=== PATIENT | male | born 2000 | race Caucasian/White ===

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

== ENCOUNTER 2022-04-27 14:20 | Emergency (ER) | payer OTHER, SELFPAY ==
[2022-04-27 14:31] VITALS: BP 150/73; PULSE 64; RESP 18; TEMP 36.9; O2SAT 99
--- NOTE | 2022-04-27 14:50 | ED.URI ---
HPI - URI/Sore Throat General Chief Complaint: Upper Respiratory Infection Stated Complaint: sorethroat,congestion,lt ear discomfort Time Seen by Provider: 04/27/22 14:50 Source: patient Mode of arrival: ambulatory Limitations: no limitations History of Present Illness HPI Narrative: 21-year-old male presents with complaint of nasal congestion, cough, sore throat, left ear pain for 2-3 days. Afebrile. Reports mild nausea. States left ear pain became worse today and feels clogged. Denies chest pain and shortness of breath. No vomiting or diarrhea. Taking Mucinex to treat symptoms. All systems reviewed and negative except as noted above. Related Data Allergies Allergy/AdvReac Type Severity Reaction Status Date / Time No Known Allergies Allergy Verified 04/27/22 14:39 Review of Systems Review of Systems: CONSTITUTIONAL: Denies fever, chills, or sweats. Reports fatigue. EYES: Denies visual changes, redness, or discharge. ENT: Reports rhinorrhea, congestion, sore throat, and left ear pain. CARDIOVASCULAR: Denies chest pain, palpitations, or edema. RESPIRATORY: Reports cough. Denies dyspnea. GASTROINTESTINAL: Denies abdominal pain, nausea, vomiting, or diarrhea. GENITOURINARY: Denies dysuria or hematuria. SKIN: Denies rash or itching. MUSCULOSKELETAL: Denies back pain, joint pain, or myalgia. NEUROLOGIC: Denies headache, numbness, or weakness. PSYCHIATRIC: Denies anxiety or depression. All other systems reviewed are negative, except as documented in HPI. PMFSH Social History Social History Gender identity (if verbalized by the patient): Male Comments At time of signature, agree with nursing past medical, surgical, social and family history. There is no relevant family history pertinent to the presenting complaint. Exam Narrative: GENERAL: This is a well-nourished, well-developed patient, in no apparent distress. HEAD: normocephalic, atraumatic. EYES: PERRL. Sclera clear/white. Vision is grossly intact. EARS: External ears normal, auditory canals clear and without drainage, fluid bilateral TMs, left TM is erythematous. NOSE: External nose normal with Clear nasal drainage, erythema to both nares. Moderate congestion, bilateral maxillary sinus tenderness. THROAT: Mucous membranes moist, Clear postnasal drainage with mild erythema posterior pharynx. NECK: Neck supple, non-tender without lymphadenopathy, masses or thyromegaly. CARDIOVASCULAR: Regular rate and rhythm without murmurs, gallops, or rubs. RESPIRATORY: Clear to auscultation. Breath sounds equal bilaterally. No wheezes, rales, or rhonchi. SKIN: warm, Dry, intact with no suspicious lesions or rash, good texture and turgor. NEURO: awake, alert, and oriented to person, place and time. There were no obvious focal neurologic abnormalities. EXTREMITIES: No joint tenderness, effusion, or edema noted. Course Course Level of Care: Express Care Visit Vital Signs Vital signs: Vital Signs Temperature 36.9 C 04/27/22 14:31 Pulse Rate 64 04/27/22 14:31 Respiratory Rate 18 04/27/22 14:31 Blood Pressure 150/73 H 04/27/22 14:31 Pulse Oximetry 99 04/27/22 14:31 Oxygen Delivery Room Air 04/27/22 14:31 Temperature 36.9 C 04/27/22 14:31 Pulse Rate 64 04/27/22 14:31 Respiratory Rate 18 04/27/22 14:31 Blood Pressure 150/73 H 04/27/22 14:31 Pulse Oximetry 99 04/27/22 14:31 Oxygen Delivery Room Air 04/27/22 14:31 Reviewed MDM - URI/Sore Throat MDM Narrative Medical decision making narrative: Patient is aware of diagnosis, understands and agrees to treatment plan. Anticipatory guidance given. Patient agrees to follow-up as directed and is aware of reasons to seek care at the emergency department. Portions of this record may have been created with voice recognition software Lab Data Labs: Influenza A Screen Negative Reference Range: Negative I
== END 2022-04-27 15:15 | disposition home or self-care (01) ==
PROVIDERS: Emergency Provider Nurse Practitioner Family; PCP Pediatrics
DX: J01.90 Acute sinusitis, unspecified (principal); H65.03 Acute serous otitis media, bilateral; J02.0 Streptococcal pharyngitis
CPT/HCPCS: 87081; 87147; 87804; 99213; G0463